=== PATIENT | male | born 1985 | race Caucasian/White ===

== ENCOUNTER 2019-08-17 01:31 | Emergency (ER) | payer OTHER, SELFPAY ==
[~2019-08-17] VITALS: Ht 180.3 cm; Wt 84.0 kg
[2019-08-17 01:34] VITALS: BP 146/92
== END 2019-08-17 01:51 ==
LOC: ER 01:31
DX: S80.01XA Contusion of right knee, initial encounter (principal); S20.419A Abrasion of unspecified back wall of thorax, initial encounter; F10.129 Alcohol abuse with intoxication, unspecified; X58.XXXA Exposure to other specified factors, initial encounter; Y93.89 Activity, other specified; Y92.89 Other specified places as the place of occurrence of the external cause; Y99.8 Other external cause status; Y90.9 Presence of alcohol in blood, level not specified
CPT/HCPCS: 99283